=== PATIENT | male | born 1965 | race Caucasian/White ===

== ENCOUNTER 2016-10-09 23:01 | Observation (INO) | payer BC ==
[~2016-10-09] VITALS: Ht 188 cm; Wt 96.2 kg
[2016-10-09] MEDS ORDERED: allergy medication (23:23)
[2016-10-09 23:32] LABS: HEMATOCRIT 47.4 % (38.0-50.0); MCH 28.1 PG (29.0-34.0); MCHC 33.5 G/DL (30.0-36.0); MCV 83.9 FL (86-99); MEAN PLAT.VOLUME 9.8 uM^3 (9.0-12.4); PLATELET COUNT 249 K/uL (156-360); RBC DIS.WIDTH-CV 12.6 % (11.8-14.6); RBC DIS.WIDTH-SD 38.5 % (39-53); RED BLOOD COUNT 5.65 M/uL (4.00-5.50); WHITE BLOOD COUNT 12.2 K/uL (4.1-10.2)
[2016-10-09 23:40] LABS: CHLORIDE 107 mEq/L (99-109); SODIUM 138 mEq/L (136-147)
[2016-10-09 23:42] LABS: GLUCOSE 110 mg/dL (70-99)
[2016-10-09 23:43] LABS: ANION GAP 7 MEQ/L (2-14); INTER. NORMALIZED RATIO 1.1; PTT 28.9 (25-32)
[2016-10-09 23:46] LABS: GFR ESTIMATE (CALCULATED) 57 mL/min/
[2016-10-09 23:47] LABS: UREA NITROGEN (BUN) 14 mg/dL (9-23)
[2016-10-09 23:53] LABS: TROP-I INTERPRETATION NEGATIVE; TROPONIN-I 0.02 ng/mL (0.0-0.30)
[2016-10-10] MEDS ORDERED: CLARITIN,ALAVAR10 MG PO (00:04)
[2016-10-10 03:23] LABS: INTER. NORMALIZED RATIO 1.1; PROTHROMBIN TIME 11.4 (9.2-11.2)
[2016-10-10 04:07] VITALS: BP 114/68
[2016-10-10 04:21] VITALS: BP 114/68
[2016-10-10 07:45] VITALS: BP 130/81
[2016-10-10 10:05] LABS: ALKALINE PHOSPHATASE 46 IU/L (3-129); ANION GAP 5 MEQ/L (2-14); CHLORIDE 104 MEQ/L (99-109); GFR ESTIMATE (CALCULATED) > 59 mL/min/; GLUCOSE 111 mg/dL (70-99); POTASSIUM 4.1 MEQ/L (3.7-5.4); SAMPLE HEMOLYSIS CHECK 0; SAMPLE ICTERIC CHECK 0; SAMPLE LIPEMIA CHECK 0; SODIUM 136 MEQ/L (136-147); UREA NITROGEN (BUN) 11 mg/dL (9-23)
[2016-10-10 10:29] LABS: BASOPHIL COUNT 0.1 K/uL (0-0.1); EOSINOPHIL (%) 2.6 % (0-5); EOSINOPHIL COUNT 0.3 K/uL (0-0.3); HEMATOCRIT 44.2 % (38.0-50.0); IMMATURE GRANULOCYTE (%) 0.3 % (0.0-0.7); INSTRUMENT ABS NEUTROPHIL CT 8.9 K/uL; LYMPHOCYTE COUNT 1.6 K/uL (1.0-2.8); MCH 27.9 PG (29.0-34.0); MCHC 33.3 G/DL (30.0-36.0); MEAN PLAT.VOLUME 10.6 uM^3 (9.0-12.4); MONOCYTE (%) 9.6 % (3-12); MONOCYTE COUNT 1.2 K/uL (0-0.8); NEUTROPHIL (%) 73.8 % (45-76); NEUTROPHIL COUNT 8.9 K/uL (1.8-6.4); PLATELET COUNT 196 K/uL (156-360); RBC DIS.WIDTH-CV 12.6 % (11.8-14.6); RBC DIS.WIDTH-SD 38.5 % (39-53); RED BLOOD COUNT 5.26 M/uL (4.00-5.50); WHITE BLOOD COUNT 12.1 K/uL (4.1-10.2)
[2016-10-10] MEDS ORDERED: ASPIR-LOW81 MG PO (11:09)
[2016-10-10] MEDS ORDERED: DILTIAZEM 24HR120 MG PO (11:09)
== END 2016-10-10 12:45 | disposition home or self-care (01) ==
LOC: EME 23:01 → 4EAST 10-10 01:15 → EDOF 10-10 01:15 → 4EAST 10-10 02:34
PROVIDERS: Internal Medicine
DX: I48.91 Unspecified atrial fibrillation (principal); I95.9 Hypotension, unspecified; N17.9 Acute kidney failure, unspecified; D72.829 Elevated white blood cell count, unspecified; F10.10 Alcohol abuse, uncomplicated
CPT/HCPCS: 71020; 80048; 80053; 81003; 84439; 84443; 84484; 85025; 85027; 85610; 85730; 93005; 99281; 99285; G0378; J3411; J3475; J7030